=== PATIENT | male | born 1945 | race Caucasian/White ===

== ENCOUNTER → 2017-05-29 | Outpatient (CLI) | payer OTHER ==
[~2017-05-29] MED LIST: AMBIEN PAK5 MG; COUMADIN4 MG; LISINOPRIL10 MG; METHOCARBAMOL500 MG PO; PLAVIX75 MG; SYNTHROID50 MCG; TOPROL XL25 MG; ZOCOR5 MG
== END | disposition home or self-care (01) ==
LOC: LAB 12:17
DX: I48.0 Paroxysmal atrial fibrillation (principal); Z79.01 Long term (current) use of anticoagulants

== ENCOUNTER 2017-11-10 10:14 | Outpatient (CLI) | payer OTHER | END 2017-11-10 10:49 | disposition home or self-care (01) | LOC: LAB 10:14 | DX: E78.2 Mixed hyperlipidemia (principal); I25.10 Atherosclerotic heart disease of native coronary artery without angina pectoris; R73.02 Impaired glucose tolerance (oral); I11.9 Hypertensive heart disease without heart failure; E03.8 Other specified hypothyroidism ==

== ENCOUNTER 2018-05-08 13:28 | Outpatient (CLI) | payer OTHER | END 2018-05-08 13:38 | disposition home or self-care (01) | LOC: MRI 13:28 | DX: M54.2 Cervicalgia (principal) | CPT/HCPCS: 72141 ==

== ENCOUNTER → 2018-08-22 10:05 | Outpatient (CLI) | payer OTHER | END | disposition home or self-care (01) | LOC: LAB 10:05 | DX: E03.8 Other specified hypothyroidism (principal); D50.8 Other iron deficiency anemias; E78.2 Mixed hyperlipidemia; I11.9 Hypertensive heart disease without heart failure; E56.8 Deficiency of other vitamins; N39.0 Urinary tract infection, site not specified; Z12.11 Encounter for screening for malignant neoplasm of colon; E55.9 Vitamin D deficiency, unspecified; N19 Unspecified kidney failure; E11.9 Type 2 diabetes mellitus without complications; R80.8 Other proteinuria; C18.0 Malignant neoplasm of cecum; K92.1 Melena; C61 Malignant neoplasm of prostate; R06.02 Shortness of breath ==

== ENCOUNTER 2018-08-23 11:54 | Outpatient (CLI) | payer OTHER | END 2018-08-23 11:57 | disposition home or self-care (01) | LOC: LAB 11:54 | DX: E03.8 Other specified hypothyroidism (principal); D50.8 Other iron deficiency anemias; E78.2 Mixed hyperlipidemia; I11.9 Hypertensive heart disease without heart failure; E56.8 Deficiency of other vitamins; N39.0 Urinary tract infection, site not specified; Z12.11 Encounter for screening for malignant neoplasm of colon; E55.9 Vitamin D deficiency, unspecified; N19 Unspecified kidney failure; E11.9 Type 2 diabetes mellitus without complications; R80.8 Other proteinuria; C18.0 Malignant neoplasm of cecum; K92.1 Melena; C61 Malignant neoplasm of prostate ==

== ENCOUNTER → 2019-05-30 12:49 | Outpatient (CLI) | payer OTHER | END | disposition home or self-care (01) | LOC: LAB 12:49 | DX: N20.0 Calculus of kidney (principal) ==

== ENCOUNTER 2019-06-06 09:40 | Outpatient (CLI) | payer OTHER | END 2019-06-06 09:41 | disposition home or self-care (01) | LOC: TOM 09:40 | DX: R10.32 Left lower quadrant pain (principal); R19.4 Change in bowel habit; K58.9 Irritable bowel syndrome, unspecified | CPT/HCPCS: 74177; Q9965 ==

== ENCOUNTER → 2020-07-28 07:51 | Outpatient (CLI) | payer OTHER | END | disposition home or self-care (01) | LOC: LAB 07:51 | PROVIDERS: ATTEND Internal Medicine Hematology & Oncology | DX: D68.61 Antiphospholipid syndrome (principal); I26.09 Other pulmonary embolism with acute cor pulmonale; I82.402 Acute embolism and thrombosis of unspecified deep veins of left lower extremity; D51.3 Other dietary vitamin B12 deficiency anemia; I51.89 Other ill-defined heart diseases; E78.2 Mixed hyperlipidemia; Z86.69 Personal history of other diseases of the nervous system and sense organs; G61.0 Guillain-Barre syndrome; I25.10 Atherosclerotic heart disease of native coronary artery without angina pectoris; G20 Parkinson's disease; D50.8 Other iron deficiency anemias; I10 Essential (primary) hypertension; K76.89 Other specified diseases of liver; D68.69 Other thrombophilia; E72.12 Methylenetetrahydrofolate reductase deficiency ==

== ENCOUNTER → 2020-11-12 10:36 | Outpatient (CLI) | payer OTHER | END | disposition home or self-care (01) | LOC: LAB 10:36 | PROVIDERS: ATTEND Internal Medicine Hematology & Oncology | DX: E78.2 Mixed hyperlipidemia (principal); D50.8 Other iron deficiency anemias; R79.89 Other specified abnormal findings of blood chemistry; I10 Essential (primary) hypertension; R74.02 Elevation of levels of lactic acid dehydrogenase [LDH]; K76.89 Other specified diseases of liver; D51.8 Other vitamin B12 deficiency anemias; D51.1 Vitamin B12 deficiency anemia due to selective vitamin B12 malabsorption with proteinuria; E03.8 Other specified hypothyroidism; D68.59 Other primary thrombophilia; I26.09 Other pulmonary embolism with acute cor pulmonale; I82.402 Acute embolism and thrombosis of unspecified deep veins of left lower extremity; I11.9 Hypertensive heart disease without heart failure; G61.0 Guillain-Barre syndrome; I25.10 Atherosclerotic heart disease of native coronary artery without angina pectoris; Z86.69 Personal history of other diseases of the nervous system and sense organs; G20 Parkinson's disease ==

== ENCOUNTER 2023-06-19 12:07 | Outpatient (CLI) | payer OTHER | END 2023-06-19 12:12 | disposition home or self-care (01) | LOC: LAB 12:07 | PROVIDERS: ATTEND Internal Medicine Hematology & Oncology | DX: R26.89 Other abnormalities of gait and mobility (principal) ==

== ENCOUNTER 2023-06-19 12:56 | Outpatient (CLI) | payer OTHER | END 2023-06-19 13:05 | disposition home or self-care (01) | LOC: MRI 12:56 | DX: G20.B2 Parkinson's disease with dyskinesia, with fluctuations (principal); R26.89 Other abnormalities of gait and mobility | CPT/HCPCS: 70553; Q9965 ==

== ENCOUNTER 2024-09-04 13:19 | Outpatient (CLI) | payer OTHER | END 2024-09-04 13:25 | disposition home or self-care (01) | LOC: RAD 13:19 | PROVIDERS: ATTEND Internal Medicine Cardiovascular Disease | DX: I10 Essential (primary) hypertension (principal); W19.XXXA Unspecified fall, initial encounter ==

== ENCOUNTER 2024-09-24 14:16 | Inpatient (IN) | payer OTHER ==
[~2024-09-24] VITALS: Ht 152.4 cm; Wt 83.9 kg
[2024-09-24] MEDS ORDERED: SYNTHROID100 MCG PO (14:48)
[2024-09-24] MEDS ORDERED: RYTARY ER 61.21 EACH PO (14:49)
[2024-09-24] MEDS ORDERED: ZESTRIL5 MG PO (14:49)
[2024-09-24] MEDS ORDERED: LIPITOR40 MG PO (14:50)
--- NOTE | 2024-09-24 14:50 | NUR ---
PTE LLEGA EN AMBULANCIA POR DESORINTACION Y DEBILIDADA DESDE HACE VARIOS [place]. SE LE RAFFI S/V Y SE UBICA EN CHELA.
[2024-09-24] MEDS ORDERED: 0.9 % SODIUM CHLORIDE 1,000 ML IV SCH ×2 (16:30→22:15)
--- NOTE | 2024-09-24 17:02 | NUR ---
RN DOAN ORIENTA A PTE SOBRE [place] MEDICO Y EL MISMO REFIERE ENTENDER Y ACEPTAR. CANALIZA Y COLECTA MUESTRAS DE LAB, ADMINSITRA MEDS RONALD ORDEN MEDICA. SE NOTIFICA ESTUDIOS PENDIENTES A SECRETARIA DE TURNO.
[2024-09-24 17:43] LABS: BASO % 0.2 % (0.1-1.2); EOS # 0.00 (0.04-0.54); EOS % 0.0 % (0.7-7.0); LYMPH # 0.78 (1.18-3.74); LYMPH % 6.1 % (19.3-53.1); MEAN PLATELET VOLUME 9.30 fl (9.4-12.4); MONO # 0.94 (0.24-0.82); MONO % 7.4 % (4.7-12.5); NEUT # 10.99 (1.56-6.13); NEUT % 85.9 % (34.0-71.1); RED CELL DISTRIBUTION WIDTH 13.2 % (11.6-14.4)
[2024-09-24 18:24] LABS: ALT/SGPT 17.0 U/L (12-78); AST/SGOT 287.0 U/L (15-37); BILIRUBIN TOTAL 1.3 mg/dL (0.3-1.2); BUN CREA RATIO 26.0 (7.0-25.0); CREATININE SERUM 0.8 mg/dL (0.70-1.30); GFR 93.01; GLOBULINA 3.4 G/DL (2.4-3.5); GLUCOSE FASTING 114.0 mg/dL (65-100); LDH 375.0 U/L (87-241); OSMOLALITY SERUM 289.0 MOSM/KG (275-295); PHOSPHOKINASE CREATININE 6164.0 U/L (39-308)
[2024-09-24 19:27] LABS: URINE APPEARANCE Clear; URINE BILIRRUBIN Negative (NEGATIVE); URINE BLOOD Large; URINE COLOR Yellow; URINE GLUCOSE Negative (NEGATIVE); URINE KETONE 15 (NEGATIVE); URINE LEUKOCYTE Negative; URINE NITRATE Negative; URINE PROTEIN 30 (NEGATIVE); URINE UROBILINOGEN 0.2 E.U./dl
[2024-09-24 19:32] LABS: URINE BACTERIA 9.6 uL (0.0-1933); URINE EPITHELIAL CELLS 3.0 uL (0.0-38.8); URINE RBC 7.6 uL (0.0-20.8); URINE WBC 3.9 uL (0.0-23.2)
--- NOTE | 2024-09-24 19:37 | NUR ---
SE REALIZA ASEO PERIANAL,PRESENTA DIARREAS.
[2024-09-24 19:39] LABS: URINE CAST 0.14 uL (0.0-1.40)
[2024-09-24] MEDS ORDERED: ONDANSETRON HCL 4 MG in 0.9 % SODIUM CHLORIDE 50 ML IV PRN (22:30)
[2024-09-24] MEDS ORDERED: ENALAPRILAT DIHYDRATE 1.25 MG/ML VIAL IV PRN (22:30)
[2024-09-24] MEDS ORDERED: FAMOTIDINE/PF 20 MG in 0.9 % SODIUM CHLORIDE 8 ML IV PUSH SCH (23:22)
[2024-09-25] MEDS ORDERED: PIPERACILLIN/TAZOBACTAM SODIUM 3.375 GM in DEXTROSE 5 % IN WATER 100 ML IV SCH
[2024-09-25 01:00] VITALS: BP 90/50
[2024-09-25 04:32] LABS: INR 0.99
[2024-09-25 04:50] LABS: PHOSPHOKINASE CREATININE 5955.0 U/L (39-308)
[2024-09-25] MEDS ORDERED: FAMOTIDINE/PF 20 MG in 0.9 % SODIUM CHLORIDE 8 ML IV PUSH SCH (09:00)
[2024-09-25 09:16] VITALS: BP 154/88; O2SAT 95
[2024-09-25 12:31] LABS: FECAL LEUKOCYTES NEGATIVE (NEGATIVE)
[2024-09-25] MEDS ORDERED: ENOXAPARIN SODIUM 80 MG/0.8 ML SYRINGE SUBCUTANEO SCH (17:00)
[2024-09-25 18:07] VITALS: BP 174/98; O2SAT 96
[2024-09-26 01:28] VITALS: BP 156/74
[2024-09-26 05:40] LABS: BASO % 0.3 % (0.1-1.2); EOS # 0.01 (0.04-0.54); EOS % 0.1 % (0.7-7.0); LYMPH # 0.84 (1.18-3.74); LYMPH % 8.6 % (19.3-53.1); MEAN PLATELET VOLUME 9.70 fl (9.4-12.4); MONO # 1.09 (0.24-0.82); MONO % 11.2 % (4.7-12.5); NEUT # 7.72 (1.56-6.13); NEUT % 79.4 % (34.0-71.1); RED CELL DISTRIBUTION WIDTH 13.3 % (11.6-14.4)
[2024-09-26 06:41] LABS: ALT/SGPT 19.0 U/L (12-78); AST/SGOT 213.0 U/L (15-37); BILIRUBIN TOTAL 1.39 mg/dL (0.3-1.2); BUN CREA RATIO 23.0 (7.0-25.0); CREATININE SERUM 0.6 mg/dL (0.70-1.30); GFR 129.63; GLOBULINA 3.3 G/DL (2.4-3.5); GLUCOSE FASTING 101.0 mg/dL (65-100); OSMOLALITY SERUM 291.0 MOSM/KG (275-295)
[2024-09-26 06:49] LABS: PHOSPHOKINASE CREATININE 2532.0 U/L (39-308)
[2024-09-26 08:00] VITALS: BP 144/72; O2SAT 94
[2024-09-26 16:40] VITALS: BP 154/77; O2SAT 96
[2024-09-26] MEDS ORDERED: MULTIVIT INFUSN,ADULT 4,VIT K 10 ML VIAL IV SCH (17:00)
[2024-09-26] MEDS ORDERED: Cyanocobalamin/Mecobalamin 1 TAB.SL SL SCH (17:00)
[2024-09-26] MEDS ORDERED: BACLOFEN 10 MG TABLET PO SCH (21:00)
[2024-09-27 03:24] VITALS: BP 136/73; O2SAT 95
[2024-09-27 08:31] LABS: ALT/SGPT 27.0 U/L (12-78); AST/SGOT 162.0 U/L (15-37); BILIRUBIN TOTAL 1.63 mg/dL (0.3-1.2); BUN CREA RATIO 19.0 (7.0-25.0); CREATININE SERUM 0.7 mg/dL (0.70-1.30); GFR 108.51; GLOBULINA 3.3 G/DL (2.4-3.5); GLUCOSE FASTING 100.0 mg/dL (65-100); OSMOLALITY SERUM 285.0 MOSM/KG (275-295)
[2024-09-27 09:41] LABS: PHOSPHOKINASE CREATININE 883.0 U/L (39-308)
[2024-09-27 10:13] VITALS: BP 153/85
[2024-09-27] MEDS ORDERED: POTASSIUM CHLORIDE IN WATER 40 MEQ/100 ML PIGGYBAG IV NR (12:00)
[2024-09-27 16:45] LABS: BUN CREA RATIO 15.0 (7.0-25.0); CHOL HDL RATIO 2.6 (0-5.0); CREATININE SERUM 0.96 mg/dL (0.70-1.30); GFR 75.36; GLUCOSE FASTING 131.0 mg/dL (65-100); HDL 44.0 mg/dl (40-60); LDL 59.0 mg/dl (0-130); OSMOLALITY SERUM 285.0 MOSM/KG (275-295); VLDL 12.0 (0-39)
[2024-09-27] MEDS ORDERED: AA 4.25%/CAL/LYTES/DEXT 5% 1,000 ML PERIFERAL SCH (17:00)
[2024-09-27 18:45] VITALS: BP 180/91
[2024-09-28 02:48] VITALS: BP 168/82; O2SAT 93
[2024-09-28 07:46] LABS: BUN CREA RATIO 14.0 (7.0-25.0); CREATININE SERUM 1.49 mg/dL (0.70-1.30); GFR 45.38; GLUCOSE FASTING 153.0 mg/dL (65-100); OSMOLALITY SERUM 293.0 MOSM/KG (275-295)
[2024-09-28 08:55] VITALS: BP 151/81
[2024-09-28 17:33] VITALS: BP 142/88
[2024-09-29 00:38] VITALS: BP 146/82; O2SAT 99
[2024-09-29 06:32] LABS: BASO % 0.3 % (0.1-1.2); EOS # 0.09 (0.04-0.54); EOS % 1.0 % (0.7-7.0); LYMPH # 0.72 (1.18-3.74); LYMPH % 8.4 % (19.3-53.1); MEAN PLATELET VOLUME 9.40 fl (9.4-12.4); MONO # 1.13 (0.24-0.82); NEUT # 6.62 (1.56-6.13); NEUT % 77.0 % (34.0-71.1); RED CELL DISTRIBUTION WIDTH 13.3 % (11.6-14.4)
[2024-09-29 06:47] LABS: MONO % 13.1 % (4.7-12.5)
[2024-09-29 07:11] LABS: INR 0.98
[2024-09-29 07:13] LABS: ALT/SGPT 19.0 U/L (12-78); AST/SGOT 110.0 U/L (15-37); BILIRUBIN TOTAL 0.97 mg/dL (0.3-1.2); BUN CREA RATIO 15.0 (7.0-25.0); CHOL HDL RATIO 3.2 (0-5.0); CREATININE SERUM 2.19 mg/dL (0.70-1.30); GFR 29.1; GLOBULINA 3.5 G/DL (2.4-3.5); GLUCOSE FASTING 138.0 mg/dL (65-100); HDL 37.0 mg/dl (40-60); LDL 70.0 mg/dl (0-130); OSMOLALITY SERUM 294.0 MOSM/KG (275-295); PHOSPHOKINASE CREATININE 188.0 U/L (39-308); VLDL 11.0 (0-39)
[2024-09-29 08:28] VITALS: BP 160/90; O2SAT 97
[2024-09-29 10:30] LABS: BILIRUBIN,CONJUGATED 0.31 mg/dL (0.0-0.2)
[2024-09-29] MEDS ORDERED: RYTARY PO SCH (17:00)
[2024-09-29 17:51] VITALS: BP 188/74
[2024-09-30 02:04] VITALS: BP 181/76; O2SAT 94
[2024-09-30 05:46] LABS: BASO % 0.6 % (0.1-1.2); EOS # 0.12 (0.04-0.54); EOS % 1.7 % (0.7-7.0); LYMPH # 1.12 (1.18-3.74); LYMPH % 16.3 % (19.3-53.1); MEAN PLATELET VOLUME 9.50 fl (9.4-12.4); MONO # 0.99 (0.24-0.82); NEUT # 4.57 (1.56-6.13); NEUT % 66.7 % (34.0-71.1); RED CELL DISTRIBUTION WIDTH 13.4 % (11.6-14.4)
[2024-09-30 05:48] LABS: MONO % 14.4 % (4.7-12.5)
[2024-09-30] MEDS ORDERED: LEVOTHYROXINE SODIUM 137 MCG TABLET PO SCH (06:00)
[2024-09-30 06:20] VITALS: BP 150/78
[2024-09-30 06:58] LABS: ALT/SGPT 79.0 U/L (12-78); AST/SGOT 88.0 U/L (15-37); BILIRUBIN TOTAL 0.58 mg/dL (0.3-1.2); BUN CREA RATIO 20.0 (7.0-25.0); CREATININE SERUM 1.13 mg/dL (0.70-1.30); GFR 62.44; GLOBULINA 3.4 G/DL (2.4-3.5); GLUCOSE FASTING 107.0 mg/dL (65-100); OSMOLALITY SERUM 300.0 MOSM/KG (275-295)
[2024-09-30 07:46] VITALS: BP 113/68
[2024-09-30] MEDS ORDERED: POTASSIUM CHLORIDE 20MEQ/100ML H2O PB IV SCH (13:00)
[2024-09-30 18:58] VITALS: BP 150/74; O2SAT 98
[2024-10-01 01:16] VITALS: BP 127/67; O2SAT 95
[2024-10-01] MEDS ORDERED: DIATRIZOATE MEGLUMINE, SODIUM 30 ML BOTTLE PO NR (07:00)
[2024-10-01 09:23] VITALS: BP 166/84
[2024-10-01] MEDS ORDERED: DEXTROSE 5 % IN WATER 1,000 ML IV SCH (13:30)
[2024-10-01 17:44] VITALS: BP 120/72; O2SAT 98
[2024-10-01] MEDS ORDERED: POLYETHYLENE GLYCOL 3350 17 GM BLIST.PACK PO STA ×2 (20:41→20:47)
[2024-10-01] MEDS ORDERED: POLYETHYLENE GLYCOL 3350 17 GM BLIST.PACK PO ONE (21:00)
[2024-10-02] MEDS ORDERED: NA PHOS,M-B/NA PHOS,DI-BA 1 BOTTLE ENEMA RECTAL ONE (01:00)
[2024-10-02 02:06] VITALS: BP 127/78; O2SAT 95
[2024-10-02 07:25] LABS: BASO % 0.5 % (0.1-1.2); EOS # 0.16 (0.04-0.54); EOS % 2.8 % (0.7-7.0); LYMPH # 0.97 (1.18-3.74); LYMPH % 16.8 % (19.3-53.1); MEAN PLATELET VOLUME 9.50 fl (9.4-12.4); MONO # 0.77 (0.24-0.82); NEUT # 3.79 (1.56-6.13); NEUT % 65.8 % (34.0-71.1); RED CELL DISTRIBUTION WIDTH 13.6 % (11.6-14.4)
[2024-10-02 07:46] LABS: MONO % 13.4 % (4.7-12.5)
[2024-10-02] MEDS ORDERED: SOD FERRIC GLUC COMPLX/SUCROSE 62.5 MG/5 ML AMPUL IV SCH (10:13)
[2024-10-02] MEDS ORDERED: MULTIVIT INFUSN,ADULT 4,VIT K 10 ML VIAL IV SCH (10:13)
[2024-10-02 10:23] VITALS: BP 165/77; O2SAT 96
[2024-10-02 11:27] LABS: BASO % 0.3 % (0.1-1.2); EOS # 0.10 (0.04-0.54); EOS % 1.3 % (0.7-7.0); LYMPH # 0.89 (1.18-3.74); LYMPH % 11.6 % (19.3-53.1); MEAN PLATELET VOLUME 9.50 fl (9.4-12.4); MONO # 1.03 (0.24-0.82); NEUT # 5.55 (1.56-6.13); NEUT % 72.6 % (34.0-71.1); RED CELL DISTRIBUTION WIDTH 13.5 % (11.6-14.4)
[2024-10-02 12:04] LABS: MONO % 13.5 % (4.7-12.5)
[2024-10-02 12:14] LABS: ALT/SGPT 109.0 U/L (12-78); AST/SGOT 101.0 U/L (15-37); BILIRUBIN TOTAL 0.84 mg/dL (0.3-1.2); BUN CREA RATIO 14.0 (7.0-25.0); CREATININE SERUM 0.81 mg/dL (0.70-1.30); GFR 91.69; GLOBULINA 3.3 G/DL (2.4-3.5); GLUCOSE FASTING 104.0 mg/dL (65-100); OSMOLALITY SERUM 292.0 MOSM/KG (275-295)
[2024-10-02] MEDS ORDERED: NA PHOS,M-B/NA PHOS,DI-BA 1 BOTTLE ENEMA RECTAL NR (13:00)
[2024-10-02 16:56] VITALS: BP 163/83; O2SAT 97
[2024-10-02] MEDS ORDERED: POTASSIUM CHLORIDE IN WATER 100 ML IV NR (17:10)
[2024-10-02] MEDS ORDERED: SPIRONOLACTONE 25 MG TABLET PO SCH (17:11)
[2024-10-03 01:59] VITALS: BP 129/73; O2SAT 96
[2024-10-03 08:57] VITALS: BP 154/74; O2SAT 96
[2024-10-03 12:59] LABS: ALT/SGPT 26.0 U/L (12-78); AST/SGOT 78.0 U/L (15-37); BILIRUBIN TOTAL 0.74 mg/dL (0.3-1.2); BUN CREA RATIO 10.0 (7.0-25.0); CREATININE SERUM 0.92 mg/dL (0.70-1.30); GFR 79.16; GLOBULINA 3.5 G/DL (2.4-3.5); GLUCOSE FASTING 117.0 mg/dL (65-100); OSMOLALITY SERUM 290.0 MOSM/KG (275-295)
[2024-10-03] MEDS ORDERED: POTASSIUM CHLORIDE IN WATER 40 MEQ/100 ML PIGGYBAG IV SCH (17:00)
[2024-10-03 17:24] VITALS: BP 123/69; O2SAT 97
[2024-10-03] MEDS ORDERED: APIXABAN 5 MG TABLET PO SCH (18:00)
[2024-10-04 02:26] VITALS: BP 153/87; O2SAT 95
[2024-10-04 09:39] LABS: ALT/SGPT 27.0 U/L (12-78); AST/SGOT 75.0 U/L (15-37); BILIRUBIN TOTAL 0.81 mg/dL (0.3-1.2); BUN CREA RATIO 10.0 (7.0-25.0); CREATININE SERUM 0.84 mg/dL (0.70-1.30); GFR 87.92; GLOBULINA 3.9 G/DL (2.4-3.5); GLUCOSE FASTING 90.0 mg/dL (65-100); OSMOLALITY SERUM 285.0 MOSM/KG (275-295)
[2024-10-04 09:59] VITALS: BP 146/83
[2024-10-04] MEDS ORDERED: LACTOBACILLUS ACIDOPHILUS 1 CAP CAP PO SCH (13:00)
[2024-10-04 17:46] VITALS: BP 157/83
[2024-10-04] MEDS ORDERED: POTASSIUM BICARBONATE/CIT AC 25 MEQ TABLET.EFF PO SCH (19:07)
[2024-10-04] MEDS ORDERED: POTASSIUM CHLORIDE IN WATER 100 ML IV ONE (20:30)
[2024-10-04] MEDS ORDERED: POTASSIUM PHOS,M-BASIC-D-BASIC 3 MM/ML VIAL IV SCH (21:00)
[2024-10-05] VITALS (7 sets, daily range): BP systolic 95–128; BP diastolic 60–75; O2SAT 93–99
[2024-10-05] MEDS ORDERED: POTASSIUM CHLORIDE IN WATER 40 MEQ/100 ML PIGGYBAG IV ONE (02:00)
[2024-10-05 08:12] LABS: BASO % 0.4 % (0.1-1.2); EOS # 0.05 (0.04-0.54); EOS % 0.4 % (0.7-7.0); LYMPH # 0.31 (1.18-3.74); LYMPH % 2.7 % (19.3-53.1); MEAN PLATELET VOLUME 9.10 fl (9.4-12.4); MONO # 0.12 (0.24-0.82); MONO % 1.1 % (4.7-12.5); NEUT # 10.72 (1.56-6.13); NEUT % 94.8 % (34.0-71.1); RED CELL DISTRIBUTION WIDTH 13.6 % (11.6-14.4)
[2024-10-05 08:28] LABS: ALT/SGPT 30.0 U/L (12-78); AST/SGOT 66.0 U/L (15-37); BILIRUBIN TOTAL 0.98 mg/dL (0.3-1.2); BUN CREA RATIO 13.0 (7.0-25.0); CREATININE SERUM 1.02 mg/dL (0.70-1.30); GFR 70.27; GLOBULINA 3.9 G/DL (2.4-3.5); GLUCOSE FASTING 108.0 mg/dL (65-100); OSMOLALITY SERUM 286.0 MOSM/KG (275-295)
[2024-10-05] MEDS ORDERED: ONDANSETRON HCL 2 MG/ML VIAL IV PRN (10:15)
[2024-10-05 11:24] LABS: URINE APPEARANCE Clear; URINE BILIRRUBIN Negative (NEGATIVE); URINE BLOOD Large; URINE COLOR Dark Yellow; URINE GLUCOSE Negative (NEGATIVE); URINE KETONE Negative (NEGATIVE); URINE LEUKOCYTE Negative; URINE NITRATE Negative; URINE PROTEIN Negative (NEGATIVE); URINE UROBILINOGEN 1.0 E.U./dl
[2024-10-05 11:25] LABS: URINE EPITHELIAL CELLS 4.9 uL (0.0-38.8); URINE RBC 104.1 uL (0.0-20.8); URINE WBC 13.2 uL (0.0-23.2)
[2024-10-05 11:26] LABS: URINE BACTERIA 2.3 uL (0.0-1933); URINE CAST 0.58 uL (0.0-1.40)
[2024-10-05 11:32] LABS: ABG PH 7.472 (7.35-7.45); ABG PO2 64.3 mmHg (80-100); BICARBONATE 21.5 mmol/l (23-25)
[2024-10-05 11:37] LABS: o2 50 %
[2024-10-05 11:40] LABS: COVID-19 AG NEGATIVE (NEGATIVE)
[2024-10-05] MEDS ORDERED: IPRATROPIUM BROMIDE 0.5 MG/2.5 ML AMPUL.NEB IH STA (12:02)
[2024-10-05] MEDS ORDERED: IPRATROPIUM BROMIDE 0.5 MG/2.5 ML AMPUL.NEB IH SCH (13:00)
[2024-10-05] MEDS ORDERED: MEROPENEM 1,000 MG VIAL IV SCH (21:00)
[2024-10-06] VITALS (9 sets, daily range): BP systolic 97–117; BP diastolic 56–77; O2SAT 84–100
[2024-10-06 06:32] LABS: BASO % 0.2 % (0.1-1.2); EOS # 0.03 (0.04-0.54); EOS % 0.1 % (0.7-7.0); LYMPH # 1.16 (1.18-3.74); LYMPH % 4.6 % (19.3-53.1); MEAN PLATELET VOLUME 9.30 fl (9.4-12.4); MONO # 1.46 (0.24-0.82); MONO % 5.8 % (4.7-12.5); NEUT # 21.62 (1.56-6.13); NEUT % 85.9 % (34.0-71.1); RED CELL DISTRIBUTION WIDTH 14.2 % (11.6-14.4)
[2024-10-06 07:08] LABS: BUN CREA RATIO 17.0 (7.0-25.0); CREATININE SERUM 0.98 mg/dL (0.70-1.30); GFR 73.59; GLUCOSE FASTING 95.0 mg/dL (65-100); OSMOLALITY SERUM 288.0 MOSM/KG (275-295)
[2024-10-06] MEDS ORDERED: POTASSIUM CHLORIDE IN WATER 100 ML IV NR (09:05)
[2024-10-06] MEDS ORDERED: IRON FUM,PS/FOLIC ACID/VITC/B3 1 CAP CAPSULE PO SCH (10:57)
[2024-10-06] MEDS ORDERED: TAMSULOSIN HCL 0.4 MG CAP PO SCH (17:57)
[2024-10-07] VITALS (10 sets, daily range): BP systolic 101–120; BP diastolic 62–70; O2SAT 91–97
[2024-10-07 06:33] LABS: BASO % 0.2 % (0.1-1.2); EOS # 0.16 (0.04-0.54); EOS % 1.0 % (0.7-7.0); LYMPH # 1.03 (1.18-3.74); LYMPH % 6.6 % (19.3-53.1); MEAN PLATELET VOLUME 9.70 fl (9.4-12.4); MONO # 1.00 (0.24-0.82); MONO % 6.5 % (4.7-12.5); NEUT # 13.13 (1.56-6.13); NEUT % 84.8 % (34.0-71.1); RED CELL DISTRIBUTION WIDTH 14.3 % (11.6-14.4)
[2024-10-07 07:14] LABS: ALT/SGPT 24.0 U/L (12-78); AST/SGOT 102.0 U/L (15-37); BILIRUBIN TOTAL 0.49 mg/dL (0.3-1.2); BUN CREA RATIO 24.0 (7.0-25.0); CREATININE SERUM 0.83 mg/dL (0.70-1.30); GFR 89.14; GLOBULINA 3.3 G/DL (2.4-3.5); GLUCOSE FASTING 93.0 mg/dL (65-100); OSMOLALITY SERUM 285.0 MOSM/KG (275-295)
[2024-10-07] MEDS ORDERED: POLYETHYLENE GLYCOL 3350 17 GM BLIST.PACK PO SCH (09:00)
[2024-10-07] MEDS ORDERED: AMINO ACIDS/PROTEIN HYDROLYS 30 ML BLIST.PACK PO SCH (09:00)
[2024-10-07] MEDS ORDERED: POTASSIUM CHLORIDE IN WATER 100 ML IV NR (10:30)
[2024-10-08] VITALS (9 sets, daily range): BP systolic 120–130; BP diastolic 60–72; O2SAT 90–96
[2024-10-08 06:23] LABS: BASO % 0.3 % (0.1-1.2); EOS # 0.07 (0.04-0.54); EOS % 0.6 % (0.7-7.0); LYMPH # 1.09 (1.18-3.74); LYMPH % 9.3 % (19.3-53.1); MEAN PLATELET VOLUME 9.60 fl (9.4-12.4); MONO # 0.69 (0.24-0.82); MONO % 5.9 % (4.7-12.5); NEUT # 9.69 (1.56-6.13); NEUT % 82.7 % (34.0-71.1); RED CELL DISTRIBUTION WIDTH 14.3 % (11.6-14.4)
[2024-10-08 07:03] LABS: ALT/SGPT 27.0 U/L (12-78); AST/SGOT 103.0 U/L (15-37); BILIRUBIN TOTAL 0.66 mg/dL (0.3-1.2); BUN CREA RATIO 21.0 (7.0-25.0); CREATININE SERUM 0.81 mg/dL (0.70-1.30); GFR 91.69; GLOBULINA 3.4 G/DL (2.4-3.5); GLUCOSE FASTING 93.0 mg/dL (65-100); OSMOLALITY SERUM 288.0 MOSM/KG (275-295)
[2024-10-08] MEDS ORDERED: CEFIDEROCOL SULFATE TOSYLATE 1 GM VIAL IV STA (09:11)
[2024-10-08] MEDS ORDERED: ACETAMINOPHEN 500 MG GEL..CAP PO PRN (13:45)
[2024-10-08] MEDS ORDERED: POTASSIUM PHOS,M-BASIC-D-BASIC 3 MM/ML VIAL IV SCH (14:00)
[2024-10-08] MEDS ORDERED: CEFIDEROCOL SULFATE TOSYLATE 1 GM VIAL IV SCH (17:00)
[2024-10-08] MEDS ORDERED: ZOLPIDEM TARTRATE 10 MG TABLET PO SCH (21:00)
[2024-10-09] VITALS (9 sets, daily range): BP systolic 129–189; BP diastolic 57–85; O2SAT 90–96
[2024-10-09 04:52] LABS: BASO % 0.5 % (0.1-1.2); EOS # 0.06 (0.04-0.54); EOS % 0.6 % (0.7-7.0); LYMPH # 0.67 (1.18-3.74); LYMPH % 6.6 % (19.3-53.1); MEAN PLATELET VOLUME 9.20 fl (9.4-12.4); MONO # 0.85 (0.24-0.82); MONO % 8.3 % (4.7-12.5); NEUT # 8.51 (1.56-6.13); NEUT % 83.5 % (34.0-71.1); RED CELL DISTRIBUTION WIDTH 14.3 % (11.6-14.4)
[2024-10-09 05:30] LABS: ALT/SGPT 24.0 U/L (12-78); AST/SGOT 79.0 U/L (15-37); BILIRUBIN TOTAL 0.86 mg/dL (0.3-1.2); BUN CREA RATIO 23.0 (7.0-25.0); CREATININE SERUM 0.78 mg/dL (0.70-1.30); GFR 95.77; GLOBULINA 3.5 G/DL (2.4-3.5); GLUCOSE FASTING 110.0 mg/dL (65-100); OSMOLALITY SERUM 284.0 MOSM/KG (275-295)
[2024-10-09 09:11] LABS: % FREE PSA 10.0 % (.)
[2024-10-09] MEDS ORDERED: POTASSIUM PHOS,M-BASIC-D-BASIC 3 MM/ML VIAL IV SCH (12:00)
[2024-10-10] VITALS (9 sets, daily range): BP systolic 125–147; BP diastolic 62–83; O2SAT 94–97
[2024-10-11] VITALS (8 sets, daily range): BP systolic 126–160; BP diastolic 70–74; O2SAT 90–98
[2024-10-11 07:39] LABS: ALT/SGPT 18.0 U/L (12-78); AST/SGOT 61.0 U/L (15-37); BILIRUBIN TOTAL 0.87 mg/dL (0.3-1.2); BUN CREA RATIO 28.0 (7.0-25.0); CREATININE SERUM 0.69 mg/dL (0.70-1.30); GFR 110.32; GLOBULINA 3.6 G/DL (2.4-3.5); GLUCOSE FASTING 95.0 mg/dL (65-100); OSMOLALITY SERUM 281.0 MOSM/KG (275-295)
[2024-10-11] MEDS ORDERED: POTASSIUM PHOS,M-BASIC-D-BASIC 45mM/15ml VIAL IV SCH (17:00)
[2024-10-12] VITALS (9 sets, daily range): BP systolic 103–160; BP diastolic 58–82; O2SAT 92–97
[2024-10-13] VITALS (8 sets, daily range): BP systolic 122–131; BP diastolic 68–77; O2SAT 90–97
[2024-10-13 05:53] LABS: BASO % 0.4 % (0.1-1.2); EOS # 0.16 (0.04-0.54); EOS % 1.7 % (0.7-7.0); LYMPH # 1.20 (1.18-3.74); LYMPH % 13.0 % (19.3-53.1); MEAN PLATELET VOLUME 9.40 fl (9.4-12.4); MONO # 0.95 (0.24-0.82); MONO % 10.3 % (4.7-12.5); NEUT # 6.74 (1.56-6.13); NEUT % 73.1 % (34.0-71.1); RED CELL DISTRIBUTION WIDTH 14.6 % (11.6-14.4)
[2024-10-13 06:38] LABS: ALT/SGPT 15.0 U/L (12-78); AST/SGOT 62.0 U/L (15-37); BILIRUBIN TOTAL 0.82 mg/dL (0.3-1.2); BUN CREA RATIO 30.0 (7.0-25.0); CREATININE SERUM 0.66 mg/dL (0.70-1.30); GFR 116.13; GLOBULINA 3.7 G/DL (2.4-3.5); GLUCOSE FASTING 92.0 mg/dL (65-100); OSMOLALITY SERUM 287.0 MOSM/KG (275-295)
[2024-10-13] MEDS ORDERED: BARIUM SULFATE 450 ML ORAL.SUSP PO ONE (07:00)
[2024-10-13] MEDS ORDERED: ENOXAPARIN SODIUM 80 MG/0.8 ML SYRINGE SUBCUTANEO SCH (17:00)
[2024-10-14] VITALS (7 sets, daily range): BP systolic 129–150; BP diastolic 63–90; O2SAT 90–98
[2024-10-14] MEDS ORDERED: LACTULOSE 20 G/30 ML BLIST.PACK PO NR (09:30)
[2024-10-14] MEDS ORDERED: MINERAL OIL 30 ML BLIST.PACK PO NR (09:30)
[2024-10-14] MEDS ORDERED: MAGNESIUM HYDROXIDE 30 ML BLIST.PACK PO NR (09:30)
[2024-10-14] MEDS ORDERED: POLYETHYLENE GLYCOL 3350 17 GM BLIST.PACK PO SCH (17:00)
[2024-10-15 03:26] VITALS: BP 136/70; O2SAT 90
[2024-10-15 09:54] VITALS: BP 140/75; O2SAT 93
[2024-10-15 16:01] VITALS: BP 125/69; O2SAT 94
[2024-10-16 03:28] VITALS: BP 111/64; O2SAT 93
[2024-10-16 06:16] LABS: BASO % 0.7 % (0.1-1.2); EOS # 0.20 (0.04-0.54); EOS % 2.7 % (0.7-7.0); LYMPH # 1.31 (1.18-3.74); LYMPH % 17.5 % (19.3-53.1); MEAN PLATELET VOLUME 9.50 fl (9.4-12.4); MONO # 0.91 (0.24-0.82); NEUT # 4.91 (1.56-6.13); NEUT % 65.4 % (34.0-71.1); RED CELL DISTRIBUTION WIDTH 14.8 % (11.6-14.4)
[2024-10-16 06:25] LABS: MONO % 12.1 % (4.7-12.5)
[2024-10-16 07:05] LABS: BUN CREA RATIO 26.0 (7.0-25.0); CREATININE SERUM 0.61 mg/dL (0.70-1.30); GFR 127.18; GLUCOSE FASTING 84.0 mg/dL (65-100); OSMOLALITY SERUM 283.0 MOSM/KG (275-295)
[2024-10-16 09:15] VITALS: BP 124/77; O2SAT 96
[2024-10-16] MEDS ORDERED: POTASSIUM PHOS,M-BASIC-D-BASIC 18 MM in 0.9 % SODIUM CHLORIDE 500 ML IV NR (12:00)
[2024-10-16 17:16] VITALS: BP 120/69; O2SAT 95
[2024-10-16] MEDS ORDERED: POTASSIUM BICARBONATE/CIT AC 25 MEQ TABLET.EFF PO SCH (18:53)
[2024-10-16] MEDS ORDERED: ZOLPIDEM TARTRATE 10 MG TABLET PO SCH (21:00)
[2024-10-17 00:41] VITALS: BP 143/76; O2SAT 97
[2024-10-17 08:11] VITALS: BP 130/71
[2024-10-17 18:04] VITALS: BP 142/91
[2024-10-18 09:03] VITALS: BP 152/76
[2024-10-18 17:27] VITALS: BP 126/72
[2024-10-19 01:22] VITALS: BP 132/77; O2SAT 98
[2024-10-19 08:47] VITALS: BP 114/67
[2024-10-19 18:36] VITALS: BP 125/74
[2024-10-20 01:51] VITALS: BP 97/60; O2SAT 97
[2024-10-20 08:54] VITALS: BP 124/69; O2SAT 96
[2024-10-20] MEDS ORDERED: METHOCARBAMOL500 MG PO (11:45)
[2024-10-20] MEDS ORDERED: TAMS0.4C PO (11:45)
[2024-10-20] MEDS ORDERED: PLAVIX75 MG PO (11:46)
[2024-10-20] MEDS ORDERED: INTEGRA F CAPS1 EACH PO (11:46)
[2024-10-20] MEDS ORDERED: LISINOPRIL10 MG PO (11:47)
[2024-10-20] MEDS ORDERED: LIPITOR40 MG PO (11:47)
[2024-10-20] MEDS ORDERED: ZOLPIDEM TARTRA10 MG PO (11:48)
[2024-10-20] MEDS ORDERED: TOPROL XL25 M1 PO (11:48)
[2024-10-20] MEDS ORDERED: SPIRONOLACTONE25 MG PO (11:48)
[2024-10-20] MEDS ORDERED: RYTARY ER 61.21 EACH PO (11:48)
[2024-10-20] MEDS ORDERED: B Complex PO (11:49)
[2024-10-20] MEDS ORDERED: Neurin-Sl Tablet Sl SL (11:49)
[2024-10-20] MEDS ORDERED: INTESTINEX680 M1 PO (11:49)
[2024-10-20] MEDS ORDERED: LEVO-T137 MCG PO (11:49)
[2024-10-20] MEDS ORDERED: POM (MEDICAMENTO EN PO (11:50)
[2024-10-20] MEDS ORDERED: PROTEINEX-18 LI30 ML PO (11:50)
[2024-10-20] MEDS ORDERED: JANTOVEN4 MG PO (11:51)
[2024-10-20] MEDS ORDERED: ELIQUIS5 MG PO (11:52)
== END 2024-10-20 14:58 | DRG 388 ==
LOC: ER 15:12 → SEC-K 22:24 → MEDJ 09-25 00:59 → MEDI 10-17 17:50
PROVIDERS: General Practice; Internal Medicine; Internal Medicine Nephrology; Student in an Organized Health Care Education/Training Program; ADMIT Internal Medicine; ATTEND Internal Medicine
PROC: B020ZZZ Computerized Tomography (CT Scan) of Brain (ICD-10-PCS; 2024-09-24)
PROC: BW21ZZZ Computerized Tomography (CT Scan) of Abdomen and Pelvis (ICD-10-PCS; 2024-09-24)
PROC: B54DZZZ Ultrasonography of Bilateral Lower Extremity Veins (ICD-10-PCS; 2024-09-24)
PROC: 3E0336Z Introduction of Nutritional Substance into Peripheral Vein, Percutaneous Approach (ICD-10-PCS; 2024-09-27)
PROC: BW21YZZ Computerized Tomography (CT Scan) of Abdomen and Pelvis using Other Contrast (ICD-10-PCS; 2024-10-01)
PROC: 0DJD8ZZ Inspection of Lower Intestinal Tract, Via Natural or Artificial Opening Endoscopic (ICD-10-PCS; principal; 2024-10-02)
PROC: BQ3DZZZ Magnetic Resonance Imaging (MRI) of Right Lower Leg (ICD-10-PCS; 2024-10-03)
PROC: B020ZZZ Computerized Tomography (CT Scan) of Brain (ICD-10-PCS; 2024-10-05)
PROC: 3E0F7GC Introduction of Other Therapeutic Substance into Respiratory Tract, Via Natural or Artificial Opening (ICD-10-PCS; 2024-10-05)
PROC: 4A12X4Z Monitoring of Cardiac Electrical Activity, External Approach (ICD-10-PCS; 2024-10-05)
PROC: 0T9B70Z Drainage of Bladder with Drainage Device, Via Natural or Artificial Opening (ICD-10-PCS; 2024-10-05)
PROC: B246ZZZ Ultrasonography of Right and Left Heart (ICD-10-PCS; 2024-10-06)
PROC: XW0 New Technology, Anatomical Regions, Introduction (ICD-10-PCS; 2024-10-08)
PROC: BW21YZZ Computerized Tomography (CT Scan) of Abdomen and Pelvis using Other Contrast (ICD-10-PCS; 2024-10-13)
DX: K56.690 Other partial intestinal obstruction (principal); G92.8 Other toxic encephalopathy; D68.59 Other primary thrombophilia; I82.412 Acute embolism and thrombosis of left femoral vein; R78.81 Bacteremia; G61.0 Guillain-Barre syndrome; N17.9 Acute kidney failure, unspecified; N13.8 Other obstructive and reflux uropathy; N39.0 Urinary tract infection, site not specified; J90 Pleural effusion, not elsewhere classified; J98.11 Atelectasis; K59.09 Other constipation; K52.89 Other specified noninfective gastroenteritis and colitis; K64.8 Other hemorrhoids; D64.89 Other specified anemias; E87.6 Hypokalemia; M17.11 Unilateral primary osteoarthritis, right knee; M85.861 Other specified disorders of bone density and structure, right lower leg; G20.A1 Parkinson's disease without dyskinesia, without mention of fluctuations; I12.9 Hypertensive chronic kidney disease with stage 1 through stage 4 chronic kidney disease, or unspecified chronic kidney disease; N18.9 Chronic kidney disease, unspecified; E03.9 Hypothyroidism, unspecified; B96.89 Other specified bacterial agents as the cause of diseases classified elsewhere; Z79.01 Long term (current) use of anticoagulants
CPT/HCPCS: 45330; 70450 ×2; 74176 ×2; 93970; 73718; 93306; 74178; 94640; 93228; 51702; J0699; 73221